=== PATIENT | female | born 1945 | race Hispanic/Latino ===

== ENCOUNTER 2020-07-21 12:30 | Inpatient (IN) | payer MEDICARE ==
[~2020-07-21] VITALS: Ht 152.4 cm; Wt 50.9 kg
[2020-07-21 12:59] LABS: BASOPHILS % (AUTO) 0.2 % (0.0-5.0); HEMATOCRIT 47.2 % (36-48); MEAN CORPUSCULAR HEMOGLOBIN 29.8 pg (27.0-33.0); MEAN CORPUSCULAR HGB CONC 33.7 g/dL (32.0-36.0); MEAN CORPUSCULAR VOLUME 88.4 fL (79-99); MONOCYTES % (AUTO) 5.9 % (3.0-13.0); PLATELET COUNT (AUTO) 207 K/uL (130-400); RED BLOOD CELL COUNT(AUTO) 5.34 MIL/uL (4.00-5.50); RED CELL DISTRIBUTION WIDTH 14.5 % (11.0-15.5)
[2020-07-21 13:05] LABS: WHITE BLOOD COUNT (AUTO) 31.6 K/uL (4.8-10.8)
[2020-07-21 13:12] LABS: CREATININE 1.1 mg/dL (0.5-1.5); POTASSIUM 4.1 mmol/L (3.5-5.1)
[2020-07-21 13:12] LABS: APPEARANCE,URINE Cloudy (CLEAR); BILIRUBIN,URINE Small (NEGATIVE); COLOR,URINE Dark Yellow (YELLOW); GLUCOSE, URINE (UA) Negative (NEGATIVE); KETONES,URINE Negative (NEGATIVE); LEUKOCYTE ESTERASE ,URINE Trace (NEGATIVE); NITRATE,URINE Negative (NEGATIVE); OCCULT BLOOD,URINE Moderate (NEGATIVE); PROTEIN,URINE POS 2+ mg/dL (NEGATIVE)
[2020-07-21 13:22] LABS: ALBUMIN 3.5 g/dL (3.5-5.0); BILIRUBIN,TOTAL 1.3 mg/dL (0.2-1.0); TOTAL PROTEIN, SERUM 7.3 g/dL (6.0-8.3)
[2020-07-21 13:31] LABS: LYMPHOCYTES % (MANUAL) 4 % (22-44); MAN.DIFF COMMENT-IMPRESSION MANUAL DIFFERENTIAL; MONOCYTES % (MANUAL) 1 % (2-9); SEGMENTED NEUTROPHILS % 95 % (40-70)
[2020-07-21 13:32] LABS: PLATELET MORPHOLOGY COMMENT ADEQUATE
[2020-07-21 13:45] LABS: BACTERIA,URINE Few /HPF (None Seen); RBC,URINE 0-1 /HPF (0-1)
[2020-07-21] MEDS ORDERED: ZOSYN 3.375GM+NS 50ML 50 ML IV ONE (13:47)
[2020-07-21] MEDS ORDERED: SODIUM CHLORIDE 0.9% 1000ML 1,000 ML IV ONE ×2 (13:48→15:11)
[2020-07-21] MEDS ORDERED: PROCHLORPERAZINE EDISYLATE 10 MG/2 ML VIAL ONE (13:48)
[2020-07-21] MEDS ORDERED: FAMOTIDINE/PF 20 MG/2 ML VIAL IV ONE (15:12)
[2020-07-21] MEDS ORDERED: ONDANSETRON HCL 4 MG/2 ML VIAL ONE (15:12)
[2020-07-21] MEDS ORDERED: MORPHINE SULFATE 4 MG/1ML SYG ONE (15:12)
[2020-07-21 15:26] LABS: ABG BASE EXCESS -3.8 mmol/L (-2.0-3.0); ABG HCO3 19.7 mmol/L (21.0-28.0); ABG OXYGEN SATURATION 96.9 % (95.0-99.0); ABG PCO2 32 mmHg (32-45)
[2020-07-21] MEDS ORDERED: ACETAMINOPHEN 325 MG TAB PO PRN ×2 (18:30)
[2020-07-21] MEDS: SODIUM CHLORIDE 0.9% 1000ML 1,000 ML IV SCH (18:30)
[2020-07-21 18:46] LABS: CHOLESTEROL 206 mg/dL (<200); HDL CHOLESTEROL 107 mg/dL (35-85); LDL DIRECT 77 mg/dL (0-99); TRIGLYCERIDES 78 mg/dL (30-200)
[2020-07-21 18:52] LABS: HEMOGLOBIN A1C 5.7 % (4.0-6.0)
[2020-07-21 19:03] LABS: ALBUMIN 3.5 g/dL (3.5-5.0); BILIRUBIN,DIRECT 0.3 mg/dL (0.0-0.3); BILIRUBIN,TOTAL 1.2 mg/dL (0.2-1.0); TOTAL PROTEIN, SERUM 7.4 g/dL (6.0-8.3)
[2020-07-21] MEDS ORDERED: HYDROMORPHONE 1 MG/1 ML AMP ONE (19:38)
[2020-07-21] MEDS: FAMOTIDINE/PF 20 MG/2 ML VIAL IV SCH (21:00)
[2020-07-22] MEDS ORDERED: HYDROMORPHONE 1 MG/1 ML AMP ONE ×2 (03:49→08:37)
[2020-07-22] MEDS: SODIUM CHLORIDE 0.9% 1000ML 1,000 ML IV SCH ×2 (04:30→14:30)
[2020-07-22 07:38] LABS: BILIRUBIN,DIRECT 0.3 mg/dL (0.0-0.3); BILIRUBIN,TOTAL 1.4 mg/dL (0.2-1.0)
[2020-07-22] MEDS ORDERED: FAMOTIDINE/PF 20 MG/2 ML VIAL IV ONE ×2 (08:32→21:08)
[2020-07-22] MEDS ORDERED: ENOXAPARIN SODIUM 30 MG/0.3 ML SQ ONE (08:32)
[2020-07-22] MEDS ORDERED: SODIUM CHLORIDE 0.9% 1000ML 1,000 ML IV ONE ×2 (08:32→21:31)
[2020-07-22] MEDS: ENOXAPARIN SODIUM 40 MG/0.4 ML SYRINGE SQ SCH (09:00)
[2020-07-22] MEDS: ZOSYN 3.375GM+NS 50ML 50 ML IV SCH ×2 (10:30→18:30)
[2020-07-22 10:33] LABS: BASOPHILS % (AUTO) 0.2 % (0.0-5.0); EOSINOPHILS % (AUTO) 0.1 % (0.0-8.0); HEMATOCRIT 37.9 % (36-48); MEAN CORPUSCULAR HEMOGLOBIN 30.7 pg (27.0-33.0); MEAN CORPUSCULAR HGB CONC 33.2 g/dL (32.0-36.0); MEAN CORPUSCULAR VOLUME 92.2 fL (79-99); MONOCYTES % (AUTO) 4.4 % (3.0-13.0); NEUTROPHILS % (AUTO) 90.4 % (40.0-77.0); PLATELET COUNT (AUTO) 145 K/uL (130-400); RED BLOOD CELL COUNT(AUTO) 4.11 MIL/uL (4.00-5.50); RED CELL DISTRIBUTION WIDTH 14.7 % (11.0-15.5); WHITE BLOOD COUNT (AUTO) 27.5 K/uL (4.8-10.8)
[2020-07-22 10:38] LABS: CREATININE 0.9 mg/dL (0.5-1.5); POTASSIUM 3.8 mmol/L (3.5-5.1)
[2020-07-22] MEDS ORDERED: LACTULOSE 20 GM/30 ML UDCUP ONE ×2 (10:45→21:07)
[2020-07-22] MEDS ORDERED: ZOSYN 3.375GM+NS 50ML 50 ML IV ONE ×2 (10:46→21:09)
[2020-07-22] MEDS ORDERED: DOCUSATE SODIUM 100 MG CAP PO ONE ×2 (10:46→21:07)
[2020-07-22] MEDS ORDERED: SODIUM CHLORIDE 0.9% 100 ML IV ONE ×2 (10:47→21:09)
[2020-07-22] MEDS ORDERED: HYDROMORPHONE HCL 0.5 MG/0.5 ML ML ONE ×2 (13:03→21:30)
[2020-07-22] MEDS: LACTULOSE 20 GM/30 ML UDCUP PO SCH (21:00)
[2020-07-22] MEDS: DOCUSATE SODIUM 100 MG CAP PO SCH (21:00)
[2020-07-22] MEDS: FAMOTIDINE/PF 20 MG/2 ML VIAL IV SCH (21:00)
[2020-07-23] MEDS: SODIUM CHLORIDE 0.9% 1000ML 1,000 ML IV SCH ×3 (00:30→20:30)
[2020-07-23 03:58] VITALS: BP 180/66
[2020-07-23] MEDS: ZOSYN 3.375GM+NS 50ML 50 ML IV SCH ×3 (04:35→20:43)
[2020-07-23] MEDS: HYDROMORPHONE 1 MG/1 ML AMP IVP PRN ×2 (04:37→20:42)
[2020-07-23 05:25] LABS: CREATININE 0.8 mg/dL (0.5-1.5); POTASSIUM 3.7 mmol/L (3.5-5.1)
[2020-07-23] MEDS: LACTULOSE 20 GM/30 ML UDCUP PO SCH ×2 (06:59→20:43)
[2020-07-23] MEDS: DOCUSATE SODIUM 100 MG CAP PO SCH ×2 (06:59→20:42)
[2020-07-23] MEDS: ENOXAPARIN SODIUM 40 MG/0.4 ML SYRINGE SQ SCH (07:46)
[2020-07-23 07:47] VITALS: BP 140/60
[2020-07-23 08:08] LABS: BASOPHILS % (AUTO) 0.2 % (0.0-5.0); EOSINOPHILS % (AUTO) 2.1 % (0.0-8.0); HEMATOCRIT 30.5 % (36-48); LYMPHOCYTES % (AUTO) 4.6 % (21.0-51.0); MEAN CORPUSCULAR HGB CONC 32.5 g/dL (32.0-36.0); MEAN CORPUSCULAR VOLUME 92.4 fL (79-99); MONOCYTES % (AUTO) 5.9 % (3.0-13.0); NEUTROPHILS % (AUTO) 86.7 % (40.0-77.0); PLATELET COUNT (AUTO) 117 K/uL (130-400); RED CELL DISTRIBUTION WIDTH 14.9 % (11.0-15.5); WHITE BLOOD COUNT (AUTO) 14.9 K/uL (4.8-10.8)
[2020-07-23 08:19] LABS: ALBUMIN 2.5 g/dL (3.5-5.0); BILIRUBIN,DIRECT 0.5 mg/dL (0.0-0.3); TOTAL PROTEIN, SERUM 6.1 g/dL (6.0-8.3)
[2020-07-23 11:39] VITALS: BP 146/58
[2020-07-23 16:00] VITALS: BP 144/59
[2020-07-23 20:00] VITALS: BP 136/62
[2020-07-23] MEDS: FAMOTIDINE/PF 20 MG/2 ML VIAL IV SCH (20:42)
[2020-07-24] VITALS (7 sets, daily range): BP systolic 114–143; BP diastolic 47–55
[2020-07-24] MEDS: ZOSYN 3.375GM+NS 50ML 50 ML IV SCH ×3 (05:44→20:09)
[2020-07-24 06:29] LABS: BASOPHILS % (AUTO) 0.2 % (0.0-5.0); EOSINOPHILS % (AUTO) 0.1 % (0.0-8.0); HEMATOCRIT 24.6 % (36-48); LYMPHOCYTES % (AUTO) 8.3 % (21.0-51.0); MEAN CORPUSCULAR HGB CONC 33.7 g/dL (32.0-36.0); MEAN CORPUSCULAR VOLUME 91.8 fL (79-99); MONOCYTES % (AUTO) 7.7 % (3.0-13.0); NEUTROPHILS % (AUTO) 83.3 % (40.0-77.0); PLATELET COUNT (AUTO) 114 K/uL (130-400); RED BLOOD CELL COUNT(AUTO) 2.68 MIL/uL (4.00-5.50); RED CELL DISTRIBUTION WIDTH 14.6 % (11.0-15.5); WHITE BLOOD COUNT (AUTO) 10.3 K/uL (4.8-10.8)
[2020-07-24 06:55] LABS: ALBUMIN 2.2 g/dL (3.5-5.0); BILIRUBIN,TOTAL 1.7 mg/dL (0.2-1.0); CREATININE 0.7 mg/dL (0.5-1.5); MAGNESIUM 2.1 mg/dL (1.80-2.40); POTASSIUM 3.4 mmol/L (3.5-5.1); TOTAL PROTEIN, SERUM 5.6 g/dL (6.0-8.3)
[2020-07-24] MEDS: ENOXAPARIN SODIUM 40 MG/0.4 ML SYRINGE SQ SCH (08:41)
[2020-07-24] MEDS: DOCUSATE SODIUM 100 MG CAP PO SCH ×3 (08:44→20:19)
[2020-07-24] MEDS ORDERED: POTASSIUM CHLORIDE 10% ELIXIR 20 MEQ/15 ML UDCUP PO SCH (08:45)
[2020-07-24 10:46] LABS: % IRON SATURATION 12.5 % (22-44)
[2020-07-24] MEDS: ONDANSETRON HCL 4 MG/2 ML VIAL IV PRN ×2 (16:07→20:09)
[2020-07-24] MEDS: HYDROMORPHONE HCL 0.5 MG/0.5 ML ML IVP PRN (16:07)
[2020-07-24] MEDS: SODIUM CHLORIDE 0.9% 1000ML 1,000 ML IV SCH (16:30)
[2020-07-24] MEDS: FAMOTIDINE/PF 20 MG/2 ML VIAL IV SCH (20:09)
[2020-07-24] MEDS: IRON SUCROSE COMPLEX 100 MG in SODIUM CHLORIDE 0.9% 50 ML IV SCH (21:21)
[2020-07-25] VITALS (7 sets, daily range): BP systolic 126–146; BP diastolic 45–71
[2020-07-25] MEDS: SODIUM CHLORIDE 0.9% 1000ML 1,000 ML IV SCH ×4 (02:30→23:29)
[2020-07-25] MEDS: ZOSYN 3.375GM+NS 50ML 50 ML IV SCH (05:07)
[2020-07-25 05:55] LABS: BASOPHILS % (AUTO) 0.1 % (0.0-5.0); EOSINOPHILS % (AUTO) 0.2 % (0.0-8.0); HEMATOCRIT 25.1 % (36-48); LYMPHOCYTES % (AUTO) 7.8 % (21.0-51.0); MEAN CORPUSCULAR HEMOGLOBIN 30.7 pg (27.0-33.0); MEAN CORPUSCULAR HGB CONC 33.5 g/dL (32.0-36.0); MEAN CORPUSCULAR VOLUME 91.6 fL (79-99); NEUTROPHILS % (AUTO) 82.3 % (40.0-77.0); PLATELET COUNT (AUTO) 145 K/uL (130-400); RED BLOOD CELL COUNT(AUTO) 2.74 MIL/uL (4.00-5.50); RED CELL DISTRIBUTION WIDTH 14.3 % (11.0-15.5); WHITE BLOOD COUNT (AUTO) 10.6 K/uL (4.8-10.8)
[2020-07-25 06:11] LABS: ALBUMIN 2.3 g/dL (3.5-5.0); CREATININE 0.6 mg/dL (0.5-1.5); POTASSIUM 3.7 mmol/L (3.5-5.1); TOTAL PROTEIN, SERUM 5.9 g/dL (6.0-8.3)
[2020-07-25] MEDS: DOCUSATE SODIUM 100 MG CAP PO SCH ×2 (11:00→21:00)
[2020-07-25] MEDS: ONDANSETRON HCL 4 MG/2 ML VIAL IV PRN (11:32)
[2020-07-25] MEDS ORDERED: COMPOUND IV MISC 1 EACH IVSOLN MISC PRN (14:00)
[2020-07-25] MEDS: HYDROMORPHONE 1 MG/1 ML AMP IVP PRN (16:55)
[2020-07-25] MEDS: FAMOTIDINE/PF 20 MG/2 ML VIAL IV SCH (21:13)
[2020-07-25] MEDS: IRON SUCROSE COMPLEX 100 MG in SODIUM CHLORIDE 0.9% 50 ML IV SCH (21:13)
[2020-07-25] MEDS: HYDROMORPHONE HCL 0.5 MG/0.5 ML ML IVP PRN (22:10)
[2020-07-25] MEDS: METOPROLOL TARTRATE 25 MG TAB PO SCH (22:34)
[2020-07-26 03:03] VITALS: BP 136/55
[2020-07-26 05:13] LABS: BASOPHILS % (AUTO) 0.1 % (0.0-5.0); EOSINOPHILS % (AUTO) 0.5 % (0.0-8.0); LYMPHOCYTES % (AUTO) 9.5 % (21.0-51.0); MEAN CORPUSCULAR HEMOGLOBIN 29.8 pg (27.0-33.0); MEAN CORPUSCULAR HGB CONC 32.9 g/dL (32.0-36.0); MEAN CORPUSCULAR VOLUME 90.6 fL (79-99); MONOCYTES % (AUTO) 12.5 % (3.0-13.0); NEUTROPHILS % (AUTO) 76.5 % (40.0-77.0); PLATELET COUNT (AUTO) 144 K/uL (130-400); RED BLOOD CELL COUNT(AUTO) 2.65 MIL/uL (4.00-5.50); RED CELL DISTRIBUTION WIDTH 13.9 % (11.0-15.5); WHITE BLOOD COUNT (AUTO) 10.5 K/uL (4.8-10.8)
[2020-07-26 06:03] LABS: ALBUMIN 2.1 g/dL (3.5-5.0); BILIRUBIN,TOTAL 0.5 mg/dL (0.2-1.0); CREATININE 0.6 mg/dL (0.5-1.5); MAGNESIUM 1.7 mg/dL (1.80-2.40); POTASSIUM 3.2 mmol/L (3.5-5.1); TOTAL PROTEIN, SERUM 5.5 g/dL (6.0-8.3)
[2020-07-26 08:00] VITALS: BP 140/63
[2020-07-26] MEDS: DOCUSATE SODIUM 100 MG CAP PO SCH ×2 (08:38→21:00)
[2020-07-26] MEDS: METOPROLOL TARTRATE 25 MG TAB PO SCH ×2 (08:38→21:01)
[2020-07-26] MEDS: SODIUM CHLORIDE 0.9% 1000ML 1,000 ML IV SCH (08:39)
[2020-07-26] MEDS ORDERED: POTASSIUM CHLORIDE 10% ELIXIR 20 MEQ/15 ML UDCUP PO SCH (09:15)
[2020-07-26 12:00] VITALS: BP 141/67
[2020-07-26] MEDS: ONDANSETRON HCL 4 MG/2 ML VIAL IV PRN (15:24)
[2020-07-26 16:01] VITALS: BP 130/71
[2020-07-26 19:52] VITALS: BP 140/64
[2020-07-26] MEDS: FAMOTIDINE/PF 20 MG/2 ML VIAL IV SCH (21:00)
[2020-07-26] MEDS: IRON SUCROSE COMPLEX 100 MG in SODIUM CHLORIDE 0.9% 50 ML IV SCH (21:00)
[2020-07-26 23:26] VITALS: BP 137/64
[2020-07-27 03:47] VITALS: BP 150/70
[2020-07-27] MEDS: SODIUM CHLORIDE 0.9% 1000ML 1,000 ML IV SCH ×2 (04:30→13:45)
[2020-07-27 06:18] LABS: BASOPHILS % (AUTO) 0.1 % (0.0-5.0); HEMATOCRIT 24.6 % (36-48); LYMPHOCYTES % (AUTO) 13.2 % (21.0-51.0); MEAN CORPUSCULAR HEMOGLOBIN 30.4 pg (27.0-33.0); MEAN CORPUSCULAR HGB CONC 33.3 g/dL (32.0-36.0); MEAN CORPUSCULAR VOLUME 91.1 fL (79-99); MONOCYTES % (AUTO) 10.8 % (3.0-13.0); NEUTROPHILS % (AUTO) 73.1 % (40.0-77.0); PLATELET COUNT (AUTO) 197 K/uL (130-400); RED CELL DISTRIBUTION WIDTH 13.6 % (11.0-15.5); WHITE BLOOD COUNT (AUTO) 9.1 K/uL (4.8-10.8)
[2020-07-27 06:31] LABS: CREATININE 0.6 mg/dL (0.5-1.5); MAGNESIUM 1.7 mg/dL (1.80-2.40); POTASSIUM 3.4 mmol/L (3.5-5.1); THYROID STIMULATING HORMONE 1.75 uIU/mL (0.36-3.74)
[2020-07-27] MEDS: METOPROLOL TARTRATE 25 MG TAB PO SCH ×2 (07:49→20:33)
[2020-07-27] MEDS: DOCUSATE SODIUM 100 MG CAP PO SCH ×2 (07:49→20:39)
[2020-07-27 08:00] VITALS: BP 151/85
[2020-07-27 12:00] VITALS: BP 161/85
[2020-07-27 16:00] VITALS: BP 146/68
[2020-07-27 19:21] VITALS: BP 132/67
[2020-07-27] MEDS: IRON SUCROSE COMPLEX 100 MG in SODIUM CHLORIDE 0.9% 50 ML IV SCH (20:33)
[2020-07-27] MEDS: APIXABAN 5 MG TABLET PO SCH (20:33)
[2020-07-27] MEDS: FAMOTIDINE/PF 20 MG/2 ML VIAL IV SCH (20:33)
[2020-07-27 23:57] VITALS: BP 132/64
[2020-07-28 03:02] VITALS: BP 126/67
[2020-07-28 04:30] LABS: BASOPHILS % (AUTO) 0.3 % (0.0-5.0); EOSINOPHILS % (AUTO) 0.9 % (0.0-8.0); HEMATOCRIT 24.5 % (36-48); LYMPHOCYTES % (AUTO) 11.9 % (21.0-51.0); MEAN CORPUSCULAR HEMOGLOBIN 30.7 pg (27.0-33.0); MEAN CORPUSCULAR HGB CONC 34.3 g/dL (32.0-36.0); MEAN CORPUSCULAR VOLUME 89.4 fL (79-99); MONOCYTES % (AUTO) 10.1 % (3.0-13.0); NEUTROPHILS % (AUTO) 75.1 % (40.0-77.0); PLATELET COUNT (AUTO) 252 K/uL (130-400); RED BLOOD CELL COUNT(AUTO) 2.74 MIL/uL (4.00-5.50); RED CELL DISTRIBUTION WIDTH 13.4 % (11.0-15.5); WHITE BLOOD COUNT (AUTO) 10.8 K/uL (4.8-10.8)
[2020-07-28 04:47] LABS: CREATININE 0.6 mg/dL (0.5-1.5); POTASSIUM 3.3 mmol/L (3.5-5.1)
[2020-07-28] MEDS ORDERED: PANT40TA PO (06:15)
[2020-07-28] MEDS ORDERED: METO25 PO (06:15)
[2020-07-28] MEDS ORDERED: APIX5TAB PO (06:15)
[2020-07-28 08:34] VITALS: BP 137/66
[2020-07-28] MEDS: DOCUSATE SODIUM 100 MG CAP PO SCH (09:57)
[2020-07-28] MEDS: METOPROLOL TARTRATE 25 MG TAB PO SCH (09:57)
[2020-07-28] MEDS: APIXABAN 5 MG TABLET PO SCH (10:01)
== END 2020-07-28 10:50 | disposition home or self-care (01) | DRG 438 ==
LOC: EDH 12:30 → EDHIP 18:22 → 4DH 07-23 03:44
PROVIDERS: ADMIT Internal Medicine; ATTEND Internal Medicine
DX: K85.20 Alcohol induced acute pancreatitis without necrosis or infection (principal); E43 Unspecified severe protein-calorie malnutrition; R31.29 Other microscopic hematuria; I48.91 Unspecified atrial fibrillation; D50.9 Iron deficiency anemia, unspecified; D69.6 Thrombocytopenia, unspecified; E86.0 Dehydration; I10 Essential (primary) hypertension; K70.10 Alcoholic hepatitis without ascites; K59.00 Constipation, unspecified; Z91.040 Latex allergy status; Z68.21 Body mass index [BMI] 21.0-21.9, adult
CPT/HCPCS: 36415; 36600; 74176; 76705; 80048; 80053; 80061; 80076; 81001; 82150; 82247; 82248; 82607; 82746; 82803; 82977; 83036; 83540; 83550; 83690; 83735; 84145; 84439; 84443; 84481; 85025; 93005; 93306; 93356; G0378; J0780; J1170; J1650; J1756; J2270; J2405; J2543; J3490; J7030